=== PATIENT | male | born 1985 | race Caucasian/White ===

== ENCOUNTER 2023-08-05 21:16 | Emergency (ER) | payer BC ==
[~2023-08-05] VITALS: Ht 177.8 cm; Wt 79.0 kg
[2023-08-05 21:20] VITALS: O2SAT 99
[2023-08-05 23:16] LABS: HEMATOCRIT. 33.7 % (42.0-52.0); HEMOGLOBIN. 10.7 g/dL (14.0-18.0); LYMPHOCYTES % 31.4 % (20.0-50.0); MEAN CORPUSCULAR HEMOGLOBIN 21.2 pg (28.0-32.0); MEAN CORPUSCULAR HGB CONC 31.8 g/dL (31.0-37.0); MEAN CORPUSCULAR VOLUME 66.7 fL (80.0-94.0); MEAN PLATELET VOLUME 8.8 fl (7.4-10.4); MONOCYTES % 9.2 % (2.0-8.0); NEUTROPHILS % 49.4 % (40.0-76.0); PLATELET 297 x1000/uL (130-400); RED BLOOD CELL COUNT 5.05 mill/uL (4.7-6.1); RED CELL DISTRIBUTION WIDTH 18.9 % (11.6-14.6); WHITE BLOOD COUNT 9.1 x1000/uL (4.5-11.0)
[2023-08-05 23:17] LABS: ADD RBC MORPHOLOGY YES; DIFFERENTIAL COMMENT 1
[2023-08-05 23:20] LABS: CLARITY URINE CLEAR (CLEAR); COLOR URINE YELLOW (YELLOW); GLUCOSE URINE NEGATIVE (NEGATIVE); KETONES URINE NEGATIVE (NEGATIVE); LEUKOCYTE ESTERASE URINE NEGATIVE (NEGATIVE); NITRITE URINE NEGATIVE (NEGATIVE); OCCULT BLOOD URINE 1+ (NEGATIVE); PROTEIN URINE NEGATIVE (NEGATIVE); SPECIFIC GRAVITY URINE 1.016 (1.005-1.030); UROBILINOGEN URINE 0.2 E.U./dL (0.2-1.0)
[2023-08-05 23:28] LABS: *AMPHETAMINES SCREEN URINE NEGATIVE (NEGATIVE); *BARBITURATES SCREEN URINE NEGATIVE (NEGATIVE); *BENZODIAZEPINES SCREEN URINE NEGATIVE (NEGATIVE); *COCAINE SCREEN URINE NEGATIVE (NEGATIVE); CANNABINOID URINE SCREEN NEGATIVE (NEGATIVE); ECSTASY MDMA SCREEN URINE NEGATIVE (NEGATIVE); METHADONE URINE SCREEN Neg (NEGATIVE); OPIATES URINE SCREEN NEGATIVE (NEGATIVE); PHENCYCLIDINE URINE SCREEN NEGATIVE (NEGATIVE)
[2023-08-05 23:32] LABS: ACETAMINOPHEN < 2 ug/mL (10-30); ALANINE AMINOTRANSFERASE 11 IU/L (10-49); ALBUMIN 3.8 g/dL (3.2-4.8); ASPARTATE AMINOTRANSFERASE 21 IU/L (<34); BILIRUBIN TOTAL 0.2 mg/dL (0.1-1.0); CALCIUM 8.3 mg/dL (8.7-10.4); CARBON DIOXIDE 29 mEq/L (21-32); CHLORIDE 108 mEq/L (98-107); CREATININE 0.9 mg/dL (0.6-1.3); GLUCOSE 92 mg/dL (70-105); SODIUM 140 mEq/L (136-145); UREA NITROGEN BLOOD 21 mg/dL (9-23)
[2023-08-05 23:34] LABS: BACTERIA URINE NONE SEEN; RBC URINE 0-2 /hpf (0-2); SQUAMOUS EPITHELIAL CELL URINE RARE /lpf (RARE/1+); WBC URINE NONE SEEN /hpf (0-2)
[2023-08-05 23:35] LABS: HYPOCHROMASIA 2+; MICROCYTOSIS 3+; PLATELET ESTIMATE NORMAL
[2023-08-05 23:36] LABS: ANISOCYTOSIS 2+; OVALOCYTES 1+
[2023-08-05 23:52] LABS: ETHANOL BLOOD < 10 mg/dL (<10)
[2023-08-06 01:42] VITALS: TEMP 98.1
[2023-08-06] MEDS: ACETAMINOPHEN 325MG TABLET PO ONE (01:42)
[2023-08-06] MEDS: IBUPROFEN 400MG TABLET PO ONE (01:42)
[2023-08-06 04:04] VITALS: BP 96/69; PULSE 78; RESP 14
== END 2023-08-06 04:59 | disposition home or self-care (01) ==
LOC: ER 21:16
DX: M54.50 Low back pain, unspecified (principal); F17.200 Nicotine dependence, unspecified, uncomplicated; Z20.822 Contact with and (suspected) exposure to COVID-19; Z88.8 Allergy status to other drugs, medicaments and biological substances; Z86.59 Personal history of other mental and behavioral disorders; W18.30XA Fall on same level, unspecified, initial encounter; Y93.89 Activity, other specified; Y92.89 Other specified places as the place of occurrence of the external cause; Y99.8 Other external cause status
CPT/HCPCS: 36415; 72110; 80053; 80305; 80307; 80320; 80329; 81003; 85025; 87426; 99284; G0480

== ENCOUNTER 2023-08-06 21:43 | Emergency (ER) | payer BC ==
[~2023-08-06] VITALS: Ht 175.3 cm; Wt 65.0 kg
[2023-08-06 21:47] VITALS: O2SAT 99
[2023-08-06] MEDS: KETOROLAC 60MG/2ML VIAL IM ONE (22:15)
[2023-08-07] MEDS: LIDOCAINE 5% PATCH TOP SCH (00:37)
[2023-08-07] MEDS: KETOROLAC 60MG/2ML VIAL IM NR (00:37)
[2023-08-07 06:00] VITALS: TEMP 98.2
[2023-08-07 09:36] VITALS: BP 114/78; PULSE 62; RESP 19
== END 2023-08-07 09:43 | disposition home or self-care (01) ==
LOC: ER 21:43
DX: M54.50 Low back pain, unspecified (principal); F31.9 Bipolar disorder, unspecified; F20.9 Schizophrenia, unspecified; F15.10 Other stimulant abuse, uncomplicated
CPT/HCPCS: 99285; 72131; 96372; J1885; A4565